=== PATIENT | male | born 1970 | race Caucasian/White ===

== ENCOUNTER 2020-04-24 20:12 | Emergency (ER) | payer BC ==
--- NOTE | 2020-04-24 20:23 | ED ---
Lower Extremity Injury HPI <Finn Murphy - Last Filed: 04/24/20 23:00> - General Source: patient, family Mode of arrival: ambulatory Limitations: no limitations <Prince Burgess - Last Filed: 04/24/20 23:57> - General Chief Complaint: Extremity Injury, Lower Stated Complaint: left leg injury Time Seen by Provider: 04/24/20 20:22 - History of Present Illness Initial Comments: Patient is a 50-year-old male presenting to the emergency department with chief complaint of left leg injury. Patient reports she was using a [employer] in one of the forks pressed upon his leg. Patient reports it was pressed along the infrapatellar region of the left lower extremity for several seconds until he was able to back the machine off. Patient reports there is also laceration in the region. States there is pain at the region of injury along with continues bleeding. Patient reports his tetanus is not up-to-date. Denies any blood thinners. Denies any numbness or tingling. States he is not able to fully bend the knee. States there is ecchymosis in the region. States this occurred about one hour prior to arrival. (Prince Burgess) - Related Data Allergies Allergy/AdvReac Type Severity Reaction Status Date / Time No Known Allergies Allergy Verified 04/24/20 20:20 Review of Systems ROS Other: All systems not noted in ROS Statement are negative. <Finn Murphy - Last Filed: 04/24/20 23:00> ROS Other: All systems not noted in ROS Statement are negative. <Prince Burgess - Last Filed: 04/24/20 23:57> ROS Statement: Those systems with pertinent positive or pertinent negative responses have been documented in the HPI. Past Medical History Past Medical History: No Reported History History of Any Multi-Drug Resistant Organisms: None Reported Past Surgical History: No Surgical Hx Reported Past Psychological History: No Psychological Hx Reported Smoking Status: Never smoker Past Alcohol Use History: None Reported Past Drug Use History: None Reported <Prince Burgess - Last Filed: 04/24/20 23:57> General Exam Limitations: no limitations General appearance: alert, in no apparent distress, obese Head exam: Present: atraumatic, normocephalic, normal inspection Eye exam: Present: normal appearance, PERRL, EOMI Pupils: Present: normal accommodation ENT exam: Present: normal exam, normal oropharynx, mucous membranes moist Neck exam: Present: normal inspection, full ROM Respiratory exam: Present: normal lung sounds bilaterally. Absent: respiratory distress, wheezes Cardiovascular Exam: Present: regular rate, normal rhythm, normal heart sounds Extremities exam: Present: tenderness (Tenderness along the anterior aspect of the left knee), normal capillary refill, joint swelling (Left knee), other (+2 ulnar and radial pulses bilateral. Sensation intact in the left lower side, distal to the region of injury.). Absent: normal inspection (Mild to moderate region of ecchymosis in the region of the left knee. There is also a 4 cm laceration. No ecchymosis distally to the region of injury.), full ROM (Limited range of motion left knee with flexion), pedal edema Back exam: Present: normal inspection, full ROM. Absent: tenderness Neurological exam: Present: alert, oriented X3 Psychiatric exam: Present: normal affect, normal mood Skin exam: Present: warm, dry, intact, normal color <Prince Burgess - Last Filed: 04/24/20 23:57> Course Vital Signs 04/24/20 04/24/20 04/24/20 20:16 22:08 23:29 Temperature 98 F 98.9 F Pulse Rate 103 H 78 81 Respiratory 20 17 16 Rate Blood Pressure 134/94 94/57 92/66 O2 Sat by Pulse 98 96 95 Oximetry Procedures - Laceration Laceration #1 Consent Obtained: verbal consent Indication: laceration Site: lower extremity Size (cm): 4 Description: linear, clean Depth: simple, single layer Sedation/Analgesia: none Anesthetic Used: lidocaine 1% Anesthesia Technique: local infiltration Amount (mls): 5 Pre-repair: wound explored, irrigated extensively, deep structures intact Type of Sutures: nylon Size of Sutures: 4-0 Number of Sutures: 6 Technique: simple, interrupted Complications: bleeding Patient Tolerated Procedure: well, no complications <Prince Burgess - Last Filed: 04/24/20 23:57> Medical Decision Making - Lab Data Result diagrams: 04/24/20 20:29 04/24/20 20:29 <Finn Murphy - Last Filed: 04/24/20 23:00> - Lab Data Result diagrams: 04/24/20 20:29 04/24/20 20:29 <Prince Burgess - Last Filed: 04/24/20 23:57> - Medical Decision Making Patient was reevaluated by myself, Dr. Murphy. Patient does have laceration below the left knee. There is diffuse swelling of the leg below this area and somewhat of the knee itself however is still soft. X-rays reviewed. Distally the extremity is neurovascularly intact. Good pulse. Cap refill less than 2 seconds. No color change. Good sensation. No paresthesias. Good strength and range of motion. Patient also has good strength with flexion at the knee. Patient is warned of signs of compartment syndrome and to return immediately if any of these are present. In addition patient is advised close follow-up. Orth opedics was contacted who did recommend patient be discharged what was agreeable to see patient tomorrow. (Finn Murphy) Patient is a 50-year-old male presenting to the emergency department with chief complaint of left leg injury. Exam there is a laceration measuring approximate 4 cm in length. It is over the patellar tendon. Laceration site repair with 6 sutures. Initially there was a concern for an open fracture. IV antibiotics and analgesia were immediately started. X-ray of the left knee and tib-fib reveals no acute osseous abnormalities. No signs of compartment syndrome at this time. Patient was given restrictions for potential signs of compartment syndrome. I spoke with who suggested the patient can be discharged and they will see him tomorrow in the office. Patient discharged with Tylenol 3 starter pack. Advised about the possible side effects of medication and advised not to drive or operate heavy machinery when taking medication. Strict return parameters were thoroughly discussed with patient was understanding and agreeable. Dr. Murphy also examined the patient and is in agreement with the treatment plan. (Prince Burgess) - Lab Data Lab Results 04/24/20 04/24/20 04/24/20 Range/Units 20:29 20:29 20:29 WBC 9.1 (3.8-10.6) k/uL RBC 5.34 (4.30-5.90) m/uL Hgb 15.4 (13.0-17.5) gm/dL Hct 47.4 (39.0-53.0) % MCV 88.8 (80.0-100.0) fL MCH 28.8 (25.0-35.0) pg MCHC 32.4 (31.0-37.0) g/dL RDW 12.4 (11.5-15.5) % Plt Count 231 (150-450) k/uL Neutrophils % 54 % Lymphocytes % 35 % Monocytes % 6 % Eosinophils % 1 % Basophils % 1 % Neutrophils # 5.0 (1.3-7.7) k/uL Lymphocytes # 3.2 (1.0-4.8) k/uL Monocytes # 0.6 (0-1.0) k/uL Eosinophils # 0.1 (0-0.7) k/uL Basophils # 0.1 (0-0.2) k/uL PT 9.7 (9.0-12.0) sec INR 0.9 (<1.2) APTT 23.0 (22.0-30.0) sec Sodium 131 L (137-145) mmol/L Potassium 4.1 (3.5-5.1) mmol/L Chloride 99 (98-107) mmol/L Carbon Dioxide 22 (22-30) mmol/L Anion Gap 10 mmol/L BUN 11 (9-20) mg/dL Creatinine 0.69 (0.66-1.25) mg/dL Est GFR (CKD-EPI)AfAm >90 (>60 ml/min/1.73 sqM) Est GFR (CKD-EPI)NonAf >90 (>60 ml/min/1.73 sqM) Glucose 477 H (74-99) mg/dL Calcium 9.3 (8.4-10.2) mg/dL Total Bilirubin 1.0 (0.2-1.3) mg/dL AST 23 (17-59) U/L ALT 24 (4-49) U/L Alkaline Phosphatase 105 (38-126) U/L Total Protein 6.3 (6.3-8.2) g/dL Albumin 3.6 (3.5-5.0) g/dL Disposition <Finn Murphy - Last Filed: 04/24/20 23:00> Is patient prescribed a controlled substance at d/c from ED?: No Time of Disposition: 22:43 <Prince Burgess - Last Filed: 04/24/20 23:57> Clinical Impression: Hematoma of left knee region, Laceration of left knee, Contusion of left knee, Laceration Disposition: HOME SELF-CARE Condition: Good Instructions (If sedation given, give patient instructions): Care For Your St itches (DC), Laceration (DC) Additional Instructions: Follow-up with . Alternate between Tylenol and Motrin for pain control. Return to emergency department if symptoms worsen. Referrals: None,Stated [REFERRING] - 1-2 days
[2020-04-24] MEDS ORDERED: MORPHINE SULFATE 4 MG/ML SYRINGE IVP STA (20:30)
[2020-04-24 20:48] LABS: Basophils # (A) 0.1 k/uL (0-0.2); Basophils % (A) 1 %; Eosinophils # (A) 0.1 k/uL (0-0.7); Eosinophils % (A) 1 %; HCT 47.4 % (39.0-53.0); HGB 15.4 gm/dL (13.0-17.5); Lymphocytes # (A) 3.2 k/uL (1.0-4.8); Lymphocytes % (A) 35 %; MCH 28.8 pg (25.0-35.0); MCHC 32.4 g/dL (31.0-37.0); MCV 88.8 fL (80.0-100.0); Mean Platelet Volume 9.8; Monocytes # (A) 0.6 k/uL (0-1.0); Monocytes % (A) 6 %; Neutrophils % (A) 54 %; Platelet Count 231 k/uL (150-450); RBC 5.34 m/uL (4.30-5.90); RDW 12.4 % (11.5-15.5); WBC 9.1 k/uL (3.8-10.6)
[2020-04-24 20:58] LABS: INR 0.9 (<1.2); Prothrombin Time 9.7 sec (9.0-12.0)
--- NOTE | 2020-04-24 21:19 | XR ---
EXAMINATION TYPE: XR knee complete LT DATE OF EXAM: 04/24/2020 COMPARISON: NONE HISTORY: Pain TECHNIQUE: 3 views FINDINGS: I see no fracture nor dislocation. There is apparent laceration deformity over the anterior patella. There is no sign of knee joint effusion. IMPRESSION: Laceration deformity. No sign of a foreign body. No fracture.
--- NOTE | 2020-04-24 21:21 | XR ---
EXAMINATION TYPE: XR tibia fibula LT DATE OF EXAM: 04/24/2020 COMPARISON: NONE HISTORY: Laceration TECHNIQUE: 4 views FINDINGS: Tibia and fibula appear intact. There is soft tissue air consistent with laceration over th e anterior patella. Knee joint and ankle joint appear intact. IMPRESSION: Laceration deformity. No sign of a foreign body. No fracture.
[2020-04-24 21:23] LABS: ALT 24 U/L (4-49); AST 23 U/L (17-59); African American GFR (CKD) >90 (>60 ml/min/1.73 sqM); Albumin 3.6 g/dL (3.5-5.0); Alkaline Phosphatase 105 U/L (38-126); Anion Gap 10 mmol/L; Blood Urea Nitrogen 11 mg/dL (9-20); Calcium 9.3 mg/dL (8.4-10.2); Carbon Dioxide 22 mmol/L (22-30); Chloride 99 mmol/L (98-107); Glucose 477 mg/dL (74-99); Non-African American GFR(CKD) >90 (>60 ml/min/1.73 sqM); Potassium 4.1 mmol/L (3.5-5.1); Sodium 131 mmol/L (137-145); Total Protein 6.3 g/dL (6.3-8.2)
[2020-04-24] MEDS ORDERED: LIDOCAINE 1% INJ 10MG/ML (20 ML MDV) SQ ONE (21:24)
[2020-04-24] MEDS ORDERED: ACET/COD 300 MG/30 MG STARTER PACK 6 TAB BTL PO STA (22:43)
[2020-04-24 23:30] VITALS: BP 92/66; PULSE 81; RESP 16; TEMP 98.9
== END 2020-04-24 23:29 | disposition home or self-care (01) ==
LOC: EC 20:12
DX: S81.012A Laceration without foreign body, left knee, initial encounter (principal); W31.82XA Contact with other commercial machinery, initial encounter
CPT/HCPCS: 36415; 80053; 85025; 85610; 85730; 73590; 73562; 99283; 12002; 96365; 96375; J2270; J0690; J2001

== ENCOUNTER 2020-05-11 13:48 | Observation (INO) | payer BC ==
[2020-05-11] MEDS ORDERED: DEXAMETHASONE SOD PHOSPHATE 10 MG/ML 1 ML VIAL IV ONE (13:58)
[2020-05-11] MEDS ORDERED: ONDANSETRON 4 MG/2 ML VIAL IVP ONE (13:58)
[2020-05-11] MEDS ORDERED: HYDROmorphone 0.5 MG/0.5 ML SYRINGE IVP PRN ×3 (13:58→15:52)
[2020-05-11] MEDS ORDERED: LACTATED RINGERS 1,000 ML IV SCH (13:58)
[2020-05-11] MEDS ORDERED: LIDOCAINE 1% (10MG/ML) FOR IV START INTRADERMA ONE (14:22)
[2020-05-11 14:39] LABS: Basophils # (A) 0.2 k/uL (0-0.2); Basophils % (A) 2 %; Eosinophils # (A) 0.2 k/uL (0-0.7); Eosinophils % (A) 2 %; HCT 47.5 % (39.0-53.0); Hypochromasia Slight; Lymphocytes # (A) 2.2 k/uL (1.0-4.8); Lymphocytes % (A) 21 %; MCHC 31.5 g/dL (31.0-37.0); MCV 88.7 fL (80.0-100.0); Mean Platelet Volume 7.8; Monocytes # (A) 0.9 k/uL (0-1.0); Monocytes % (A) 9 %; Neutrophils # (A) 6.9 k/uL (1.3-7.7); Neutrophils % (A) 65 %; RBC 5.36 m/uL (4.30-5.90); WBC 10.6 k/uL (3.8-10.6)
[2020-05-11 14:45] LABS: ALT 17 U/L (4-49); AST 22 U/L (17-59); African American GFR (CKD) >90 (>60 ml/min/1.73 sqM); Albumin 3.5 g/dL (3.5-5.0); Alkaline Phosphatase 147 U/L (38-126); Anion Gap 11 mmol/L; Blood Urea Nitrogen 12 mg/dL (9-20); Calcium 9.5 mg/dL (8.4-10.2); Carbon Dioxide 23 mmol/L (22-30); Chloride 101 mmol/L (98-107); Glucose 359 mg/dL (74-99); Non-African American GFR(CKD) >90 (>60 ml/min/1.73 sqM); Potassium 4.6 mmol/L (3.5-5.1); Sodium 135 mmol/L (137-145); Total Bilirubin 1.6 mg/dL (0.2-1.3); Total Protein 7.1 g/dL (6.3-8.2)
[2020-05-11 15:07] LABS: Platelet Count 531 k/uL (150-450)
[2020-05-11] MEDS ORDERED: LIDOCAINE 1% INJ 10MG/ML (20 ML MDV) ONE (15:49)
[2020-05-11] MEDS ORDERED: SUCCINYLCHOLINE CHLORIDE 100 MG/5 ML SYR IV ONE (15:49)
[2020-05-11] MEDS ORDERED: PROPOFOL 10 MG/ML 20 ML VIAL IV ONE (15:49)
[2020-05-11] MEDS ORDERED: MIDAZOLAM 2 MG/2 ML VIAL ONE (15:49)
[2020-05-11] MEDS ORDERED: fentaNYL (PF) 50 MCG/ML 2 ML AMP ONE (15:49)
[2020-05-11] MEDS ORDERED: diazePAM 5 MG TAB PO PRN (15:52)
[2020-05-11] MEDS ORDERED: NALOXONE 0.4 MG/ML 1 ML VIAL IV PRN (15:52)
[2020-05-11] MEDS ORDERED: ACETAMINOPHEN TAB 325 MG TAB PO PRN (15:52)
[2020-05-11] MEDS ORDERED: HYDROmorphone 1 MG/ML 1 ML SYRINGE IVP PRN (15:52)
[2020-05-11] MEDS ORDERED: traMADol 50 MG TAB PO PRN (15:52)
[2020-05-11] MEDS ORDERED: NA PHOS,M-B/NA PHOS,DI-BA 133 ML ENEMA RECTAL PRN (15:52)
[2020-05-11] MEDS ORDERED: MAGNESIUM HYDROXIDE 2,400 MG/10 ML CUP PO PRN (15:52)
[2020-05-11] MEDS ORDERED: HYDROcodone/APAP 5-325MG 1 EACH TAB PO PRN (15:52)
[2020-05-11] MEDS ORDERED: bisacodyL 10 MG SUPP RECTAL PRN (15:52)
[2020-05-11] MEDS ORDERED: TEMAZEPAM 15 MG CAP PO PRN (15:52)
[2020-05-11] MEDS ORDERED: ONDANSETRON 4 MG/2 ML VIAL IVP PRN (15:52)
[2020-05-11] MEDS ORDERED: LACTATED RINGERS 1,000 ML IV ONE (16:20)
[2020-05-11] MEDS ORDERED: ceFAZolin 3,000 MG in SODIUM CHLORIDE 0.9% IRRIGATIO 3,000 ML IRRIGATION ONE ×4 (16:21)
[2020-05-11] MEDS: LACTATED RINGERS 1,000 ML IV SCH (17:40)
[2020-05-11 18:18] LABS: Glucose,Whole Blood 355 mg/dL (75-99)
[2020-05-11] MEDS: ASPIRIN 81 MG PO SCH (20:44)
[2020-05-11] MEDS: HYDROcodone/APAP 10-325MG 1 EACH TAB PO PRN (20:44)
[2020-05-11] MEDS ORDERED: SENNOSIDES-DOCUSATE SODIUM 1 EACH TAB PO SCH (21:00)
[2020-05-12 00:52] VITALS: RESP 16
[2020-05-12 01:33] LABS: Chol/HDL Ratio 3.83; LDL Cholesterol,Calculated 92.8 mg/dL (0.0-131.0); VLDL Calculation 37.2 mg/dL (5.00-40.00)
[2020-05-12] MEDS: LACTATED RINGERS 1,000 ML IV SCH (04:31)
[2020-05-12] MEDS: HYDROcodone/APAP 10-325MG 1 EACH TAB PO PRN ×2 (04:37→12:12)
--- NOTE | 2020-05-12 04:52 | OP ---
OPERATIVE REPORT DATE OF PROCEDURE: 05/11/2020. SURGEON: Kaveh Barraza MD PREOPERATIVE DIAGNOSIS: Left leg laceration with subcutaneous fluid collection. POSTOPERATIVE DIAGNOSIS: Left leg hematoma with laceration wound dehiscence. PROCEDURE PERFORMED: Irrigation and debridement with evacuation of left leg hematoma. ANESTHESIA: General endotracheal. ESTIMATED BLOOD LOSS: 25 mL. TOURNIQUET: None. DRAINS: None. COMPLICATIONS: None apparent. DISPOSITION: Postanesthesia care unit. INDICATIONS: Uzair is a very pleasant 50-year-old male who was injured a little over 10 days ago in an accident with a skid steer heavy equipment. He initially presented to the emergency department at [facility]. He had a laceration just distal and medial to his knee. He was treated by the emergency department staff. Apparently, he had an irrigation of the wound and primary closure of the wound in the emergency department at that time. He was then followed in our office. The sutures removed around the 10-day samantha. He subsequently developed a dehiscence of the traumatic laceration that he suffered. Decision was made yesterday that it would be best to proceed with operative irrigation, debridement of the wound and evacuation of the subcutaneous fluid collection. All of Alfonso's questions with regards to the procedure were answered to his satisfaction. He wishes to proceed with the procedure. The risks of the procedure were discussed with him in detail. These risks include, but are not limited to risk of infection, nerve damage, bleeding, pain, failure to eradicate any infection. There is also a continued risk of dehiscence of the traumatic wound. All of Alfonso's questions were answered to his satisfaction. An appropriate informed consent was obtained. DESCRIPTION OF THE PROCEDURE: Patient identified in the preoperative holding area. Surgical site was marked by both patient and myself. He was then transferred to the operative suite. He was placed supine on the operative table. General anesthetic was then administered, dosed per the anesthesia without apparent complication. He had an approximate 5 cm x 2 cm traumatic wound distally on the distal medial aspect of his knee. The traumatic wound was very much near the area of the pes anserine. The wound was subcutaneous. The dehisced wound did have quite a bit of serous drainage. I then entered the dehisced wound with a hemostatic. Immediately, hematoma began to be evacuated. This was all clotted blood. There was no fresh blood evident. At this point, I then utilizing blunt instruments evacuated a fairly large hematoma which encompassed both the proximal and distal aspect of his knee. There was no effusion in the knee. The knee was stable to ligamentous exam as well. I then debrided any devitalized subcutaneous tissue which was debrided utilizing a 15-blade scalpel. I then proceeded to irrigate the area with 6 L of saline solution with Ancef added to it via pulse lavage. The entire hematoma cavity, which was fairly extensive, was thoroughly irrigated at this time. After the irrigation, I then proceeded to freshen up the wound edges around the traumatic laceration. This was done with a 15-blade scalpel. The devitalized tissue on the wound edges was sharply removed. This provided nice bleeding skin edges for closure. I then proceeded to pack the hematoma cavity with 1 inch iodoform gauze. This was brought out through the superior medial part of the laceration. The remaining part of the laceration was then closed with 2-0 nylon interrupted suture. It closed quite easily. A sterile compressive dressing was then applied. Of note, at the very beginning of the case, I did send 2 separate cultures from the hematoma for evaluation. All sponge and needle counts were deemed correct prior to closure. The patient tolerated the procedure without apparent complication. He was transferred to the recovery room in stable condition. POSTOPERATIVE PLAN: We will keep Uzair overnight for 24 hours of IV antibiotics. We will remove the iodoform gauze prior to him being discharged home. We will also instruct him on how to provide a good compressive wrap over the knee as to prevent any fluid collection. MMODL / IJN: [id number] /
[2020-05-12 04:59] LABS: Hemoglobin A1C 12.3 % (4.0-6.0)
[2020-05-12 07:38] LABS: Basophils % (A) 0 %; Eosinophils % (A) 0 %; HCT 38.5 % (39.0-53.0); HGB 12.5 gm/dL (13.0-17.5); Hypochromasia Moderate; Lymphocytes # (A) 2.4 k/uL (1.0-4.8); Lymphocytes % (A) 19 %; MCH 29.4 pg (25.0-35.0); MCHC 32.4 g/dL (31.0-37.0); MCV 90.8 fL (80.0-100.0); Mean Platelet Volume 7.9; Monocytes # (A) 1.8 k/uL (0-1.0); Monocytes % (A) 14 %; Neutrophils % (A) 65 %; Platelet Count 447 k/uL (150-450); RBC 4.24 m/uL (4.30-5.90); RDW 13.2 % (11.5-15.5); WBC 12.4 k/uL (3.8-10.6)
[2020-05-12 07:39] VITALS: BP 124/84; PULSE 99; TEMP 97.8
[2020-05-12 08:49] LABS: Large Platelets Present
[2020-05-12] MEDS: ASPIRIN 81 MG PO SCH (09:30)
[2020-05-12 11:42] VITALS: BMI 32.6
[2020-05-12] MEDS ORDERED: MULTIVITAMINS, THERA 1 EACH TAB PO SCH (12:00)
--- NOTE | 2020-05-12 12:26 | P.DS ---
Providers Expected date of discharge: 05/12/20 Attending physician: Kaveh Barraza Consults: 05/11/20 15:52 Consult Physician Routine Consulting Provider: David Rose Consult Reason/Comments: medical management Do you want consulting provider notified?: Yes Primary care physician: Lowell Woods - Discharge Diagnosis(es) (1) Hematoma of left knee region Admitted to OR 05/11/20 after failing outpatient treatment for left knee wound and injury from heavy equipment accident. He desired to proceed with elective procedure for I and D of left knee with wound closure. He underwent the above procedure and tolerated well without complication. Postoperative hospital course has remained without complication. On day of discharge he is afebrile, vital signs stable, labs within acceptable ranges, tolerating by mouth meds and diet, voiding without difficulty, positive flatus, denies abdominal pain or calf pain, pain is controlled on oral pain medication and has no new complaints. Wound is benign, neurovascular status is intact, calf is soft and nontender, abdomen soft and nontender. Review of systems is negative for numbness, tingling, fever, chills, chest pain, shortness of breath, nausea, vomiting, dizziness, headaches, slurred speech or other. His blood glucose is elevated and he was advised to start medication per IM and f/u with Dr. Woods at soonest availability as outpatient Current Visit: No Status: Acute Priority: Medium (2) Laceration Current Visit: No Status: Acute Priority: Medium Procedures: I and D left knee Patient Condition at Discharge: Good Plan - Discharge Summary Discharge Rx Participant: No New Discharge Prescriptions: New HYDROcodone/APAP 5-325MG [[place] 5-325] 1 tab PO Q4HR PRN #30 tab PRN Reason: Pain metFORMIN HCL [Glucophage] 500 mg PO TID-W/MEALS #90 tab Atorvastatin Calcium [Lipitor] 20 mg PO HS #30 tab No Action Amoxicillin/Potassium Clav [Augmentin 875-125 Tablet] 1 tab PO BID Acetaminophen [Tylenol] 325 mg PO Q4H PRN PRN Reason: Pain Discharge Medication List Acetaminophen [Tylenol] 325 mg PO Q4H PRN 05/10/20 [History] Amoxicillin/Potassium Clav [Augmentin 875-125 Tablet] 1 tab PO BID 05/10/20 [History] Atorvastatin Calcium [Lipitor] 20 mg PO HS #30 tab 05/12/20 [Rx] HYDROcodone/APAP 5-325MG [[place] 5-325] 1 tab PO Q4HR PRN #30 tab 05/12/20 [Rx] metFORMIN HCL [Glucophage] 500 mg PO TID-W/MEALS #90 tab 05/12/20 [Rx] Follow up Appointment(s)/Referral(s): Kaveh Barraza MD [STAFF PHYSICIAN] - 05/15/20 Scott Jain PAC [PHYSICIAN CLINICAL LABORATORY DIRECTOR] - 05/15/20 Patient Instructions/Handouts: Laceration (DC) Activity/Diet/Wound Care/Special Instructions: Maintain bandage and wrap, keep clean and dry take meds as directed elevate and ice WBAT F/U in office Friday ac - daily - keep log diabetic diet Discharge Disposition: HOME SELF-CARE
[2020-05-12] MEDS ORDERED: metFORMIN 500 MG TAB PO SCH (12:30)
[2020-05-12] MEDS ORDERED: PIPERACILLIN-TAZOBACTAM 3.375 GM in SODIUM CHLORIDE 0.9% 100 ML IVPB SCH (16:00)
--- NOTE | 2020-05-12 19:20 | P.CONS ---
History of Present Illness - Reason for Consult Consult date: 05/12/20 Medical management Requesting physician: Kaveh Barraza - Chief Complaint Left leg pain - History of Present Illness Consultation: This is a very pleasant 50-year-old patient who follows with Dr. Woods. About 2 weeks ago patient had a fork lift accident with the part came down on his left knee and between that and the carpal and the sidewall left knee "crushed. He came down to the ER he was cleaned up and discharged to [facility]. Had tetanus was up to date. [facility] interest records and okayed him to go home. He was put on Augmentin. I asked to come back. When he came back to the office he was then sent in to the hospital and he was taken to remove a possible infected hematoma. Patient denied any fever and chills. Patient for some time has been noticing increasing thirst and polydipsia polyuria and losing weight. Sugars had been running high. Here in the hospital his sugar was 359. Patient has a dressing on the left leg after evacuation surgery today. There is no pus drainage noted. Patient has been cresencio d he is a prediabetic Review of systems: GEN.: Tired, weight loss EYES: None HEENT: Dry mouth NECK: None RESPIRATORY: None CARDIOVASCULAR: None GASTROINTESTINAL: None GENITOURINARY: Urinary frequency MUSCULOSKELETAL: As above LYMPHATICS: None HEMATOLOGICAL: None PSYCHIATRY: None NEUROLOGICAL: None Past medical history to include: Prediabetic, patient did use CBD oil sometimes for left shoulder pain Social history: . Alcohol rarely. Does not smoke. Has his own business. Family history: Reviewed, noncontributory to presentation Physical examination: VITAL SIGNS: 97.8, 99, 16, 124/84, 96% room air GENERAL: [BMI 32.7, laying in bed, awake. EYES: Pupils equal. Conjunctiva normal. HEENT: External appearance of nose and ears normal, oral cavity grossly normal. NECK: JVD not raised; masses not palpable. HEART: First and second heart sounds are normal; no edema. LUNGS: Respiratory rate normal; clear to auscultation. ABDOMEN: Soft, nontender, liver spleen not palpable, no masses palpable. PSYCH: Alert and oriented x3; mood and affect normal MUSCULAR skeletal: Dressing over the left leg, patient got good movements in the left foot with good dorsalis pedis pulses and warm. NEUROLOGICAL: Cranial nerves grossly intact; no facial asymmetry, power and sensation grossly intact. LYMPHATICS: No lymph nodes palpable in the axilla and neck INVESTIGATIONS, reviewed in the clinical context: White count 12.4 hemoglobin 12.5 platelets 447 potassium 4.6 creatinine 0.57 Blood glucose 359 Hemoglobin A1c 12.3 LDL 92 Assessment: -New diagnosis of diabetes mellitus type 2, uncontrolled with hyperglycemia he sees patient had symptoms for quite some time with HbA1c of 12.3. I did tell the patient to maybe stay overnight so I can better handle on her sugars. He is very keen to go home. He was to follow-up with Dr. Woods. I started the patient on metformin. Os abdomen the emergency room physician assistant to see him and also put him on a diabetic diet. We'll also the dietitian see the patient. -Left leg hematoma evacuated -Reactive leukocytosis Plan: Patient started on metformin 500 mg twice a day. Patient to keep a log of his Accu-Cheks and follow up at his family doctor next week. Importance of sugar control was described. Also be started on Lipitor 20 mg daily at bedtime. Patient already received a tetanus shot before up to date for the same. We'll continue with Augmentin. Thank you Dr. Barraza Past Medical History Past Medical History: No Reported History Additional Past Medical History / Comment(s): 04/24/20 wound left knee, sutures removed History of Any Multi-Drug Resistant Organisms: None Reported Past Surgical History: No Surgical Hx Reported Additional Past Surgical History / Comment(s): sx for nasal fx Past Anesthesia/Blood Transfusion Reactions: No Reported Reaction Past Psychological History: No Psychological Hx Reported Smoking Status: Never smoker Past Alcohol Use History: Rare Past Drug Use History: None Reported Additional Drug Use History / Comment(s): occasional CBD oil use, instructed to hold day before procedure Medications and Allergies Home Medications Medication Instructions Recorded Confirmed Type Acetaminophen [Tylenol] 325 mg PO Q4H PRN 05/10/20 05/10/20 History Amoxicillin/Potassium Clav 1 tab PO BID 05/10/20 05/10/20 History [Augmentin 875-125 Tablet] Atorvastatin Calcium [Lipitor] 20 mg PO HS #30 tab 05/12/20 Rx HYDROcodone/APAP 5-325MG [[place] 1 tab PO Q4HR PRN #30 tab 05/12/20 Rx 5-325] metFORMIN HCL [Glucophage] 500 mg PO TID-W/MEALS #90 tab 05/12/20 Rx Allergies Allergy/AdvReac Type Severity Reaction Status Date / Time No Known Allergies Allergy Verified 05/11/20 14:05 Physical Exam Vitals: Vital Signs Temp Pulse Resp BP BP Pulse Ox 05/12/20 07:12 97.8 F 99 16 124/84 96 05/12/20 00:28 98.3 F 114 H 16 114/74 95 05/11/20 19:00 91 118/75 05/11/20 18:50 98.7 F 108 H 15 114/81 96 05/11/20 17:36 98.2 F 105 H 16 120/76 95 05/11/20 17:30 98.6 F 143/67 05/11/20 17:17 99 16 124/82 97 05/11/20 17:00 96 16 128/79 94 L 05/11/20 16:47 97.0 F L 97 18 127/77 90 L 05/11/20 14:19 99.7 F H 125 H 16 158/91 99 Intake and Output 05/11/20 05/12/20 05/12/20 22:59 06:59 14:59 Intake Total 952 900 Output Total 25 Balance 927 900 Intake: IV 952 Intake, IV Titration 900 Amount Lactated Ringers 1,000 ml 800 @ 100 mls/hr IV .Q10H [facility] Rx#:[id number] ceFAZolin 2 gm In Sodium 100 Chloride 0.9% 50 ml @ 100 mls/hr IVPB Q8HR [facility] Rx# :[id number] Output: Estimated Blood Loss 25 Other: Voiding Method Toilet Urinal # Voids 1 3 Weight 109.3 kg Results CBC & Chem 7: 05/12/20 07:02 05/11/20 14:19 Labs: Abnormal Lab Results - Last 24 Hours (Table) 05/11/20 05/11/20 05/11/20 Range/Units 13:48 13:48 14:19 WBC (3.8-10.6) k/uL RBC (4.30-5.90) m/uL Hgb (13.0-17.5) gm/dL Hct (39.0-53.0) % Plt Count 531 H D (150-450) k/uL Neutrophils # (1.3-7.7) k/uL Monocytes # (0-1.0) k/uL Sodium (137-145) mmol/L Creatinine (0.66-1.25) mg/dL Glucose (74-99) mg/dL POC Glucose (mg/dL) (75-99) mg/dL Hemoglobin A1c 12.3 H (4.0-6.0) % Total Bilirubin (0.2-1.3) mg/dL Alkaline Phosphatase (38-126) U/L Triglycerides 186.0 H (0.0-149.0) mg/dL 05/11/20 05/11/20 05/12/20 Range/Units 14:19 18:00 07:02 WBC 12.4 H (3.8-10.6) k/uL RBC 4.24 L (4.30-5.90) m/uL Hgb 12.5 L (13.0-17.5) gm/dL Hct 38.5 L (39.0-53.0) % Plt Count (150-450) k/uL Neutrophils # 8.0 H (1.3-7.7) k/uL Monocytes # 1.8 H (0-1.0) k/uL Sodium 135 L (137-145) mmol/L Creatinine 0.57 L (0.66-1.25) mg/dL Glucose 359 H (74-99) mg/dL POC Glucose (mg/dL) 355 H (75-99) mg/dL Hemoglobin A1c (4.0-6.0) % Total Bilirubin 1.6 H (0.2-1.3) mg/dL Alkaline Phosphatase 147 H (38-126) U/L Triglycerides (0.0-149.0) mg/dL Microbiology - Last 24 Hours (Table) 05/11/20 16:20 Gram Stain - Preliminary Knee - Left Wound Culture - Preliminary 05/11/20 16:20 Anaerobic Culture - Preliminary Knee - Left
--- NOTE | 2020-05-17 15:01 | CDI ---
Date: 05.17.2020 CDS/Alterations Tailor Name: Daniela Chung Phone: If any questions, call Debbie Will [employer] Server at [phone] Patient Name: Uzair Perez Admit Date 05.12.20 Discharge Date: 05.12.20 ATTENTION: The [facility] Coding Staff appreciate your assistance in clarifying documentation. Please respond to the clarification below the line at the bottom and electronically sign. The [facility] Coding staff will review the response and follow-up if needed. Please note: Queries are made part of the Legal Health Record. If you have any questions, please contact the Buffet Server. Dear Dr. Barraza In order to code to the greatest specificity and for the greatest reimbursement I need the following information: In your OP report you have documented that you did a debridement of subcutaneous tissue after evacuation of a hematoma. Please specify the size of the surface area that was debrided. Thank you for your kind consideration. The area debrided was approximately 10 cm x 10 cm MTDD
== END 2020-05-12 13:52 ==
LOC: OR 13:48 → 4SSUR 16:47 → OR 05-12 13:36
PROVIDERS: ADMIT Orthopaedic Surgery Sports Medicine; ATTEND Orthopaedic Surgery Sports Medicine
DX: T81.33XA Disruption of traumatic injury wound repair, initial encounter (principal); S80.12XA Contusion of left lower leg, initial encounter; E11.65 Type 2 diabetes mellitus with hyperglycemia; D72.829 Elevated white blood cell count, unspecified; Z87.81 Personal history of (healed) traumatic fracture; Z98.890 Other specified postprocedural states; W24.0XXA Contact with lifting devices, not elsewhere classified, initial encounter
CPT/HCPCS: 10140; 97161; 80061; 80053; 85025 ×2; 87070; 87205; 87075; 87077; 87186; 83036; G0378; J2250; J1100; J0690 ×3; J2405; J2001; J3010; J0330; J2704